=== PATIENT | male | born 1950 | race Caucasian/White ===

== ENCOUNTER → 2017-07-30 | Outpatient (CLI) | payer MEDICARE ==
[~2017-07-30] MED LIST: CITALOPRAM HBR40 MG PO; FARXIGA PO; IOPAMIDOL 370 MG/ML 200 ML INFUS..BTL INJ ONE; LISINOPRIL2.5 MG PO; METFORMIN HCL850 MG PO; METOPROLOL SUCC50 MG PO; SIMVASTATIN80 MG PO; SODIUM CHLORIDE 0.9% 50ML 50 ML ONE; SULINDAC200 MG PO; VIAGRA100 MG PO
[2017-07-30 15:22] LABS: BLOOD UREA NITROGEN 25 mg/dL (7-26); BUN/CREATININE RATIO 27 (6-25); CREATININE, SERUM 0.93 mg/dL (0.72-1.25); EST GLOMERULAR FILTRATION RATE > 60 ML/MIN (60-)
--- NOTE | 2017-07-30 16:59 | Diagnostic Imaging Report ---
PROCEDURE: CT ABDOMEN AND PELVIS WITH CONTRAST TECHNIQUE: The abdomen and pelvis were scanned utilizing a multidetector helical scanner from the diaphragm to the lesser trochanter after the IV administration of 100 cc of Isovue 370 and the oral administration of 900 cc of water. Coronal and sagittal multiplanar reformations were obtained. DLP: 617.5 mGy-cm COMPARISON: None. INDICATIONS: ELEVATED LIPASE, ABDOMINAL PAIN FINDINGS: LOWER THORAX: AICD lead in the right ventricle. Median sternotomy wires and CABG clips on 2nd pressman radiograph. HEPATOBILIARY: No focal hepatic lesions. No biliary ductal dilatation. Multiple calcified gallstones in the neck and fundus. SPLEEN: No splenomegaly. PANCREAS: No focal masses. Pancreatic duct at the upper limits of normal. No peripancreatic stranding, peripancreatic fluid collection, or necrosis. A punctate calcification (coronal image 301) in the inferior body may represent a vascular calcification or parenchymal calcification. ADRENALS: No adrenal nodules. KIDNEYS/URETERS: No hydronephrosis or solid mass lesions. Nonobstructing 3 mm right upper pole calculus. A 0.7 cm hypodensity in the medial posterior interpolar region is too small to characterize but likely a cyst. No ureteral calculi. PELVIC ORGANS/BLADDER: Unremarkable. PERITONEUM / RETROPERITONEUM: No free air or fluid. LYMPH NODES: No lymphadenopathy. VESSELS: Diffuse atherosclerotic disease. Fusiform abdominal aortic aneurysm measures 3.1 cm (series 2 image 46) near the bifurcation. Severe stenosis at the left common iliac artery origin. Focal severe stenosis of the left external iliac artery (coronal image 57). GI TRACT: No distention or wall thickening. The appendix is normal. Few scattered colonic diverticula without evidence of diverticulitis. BONES AND SOFT TISSUES: Scattered degenerative changes, worse at L5-S1. IMPRESSION: 1. No CT evidence of pancreatitis. 2. Cholelithiasis. 3. Right nephrolithiasis. 4. Colonic diverticulosis. 5. Distal abdominal aortic aneurysm measuring 3.1 cm. Dictated by: Man Costa M.D. on 07/30/2017 at 16:59 Electronically approved by: Man Costa M.D. on 07/30/2017 at 16:59
== END ==
LOC: CT 14:26
PROVIDERS: ATTEND Family Medicine
DX: R74.8 Abnormal levels of other serum enzymes (principal)
CPT/HCPCS: 36415; 74177; 82565; 84520; Q9967

== ENCOUNTER → 2017-08-13 | Outpatient (CLI) | payer MEDICARE ==
[~2017-08-13] MED LIST changes: -IOPAMIDOL 370 MG/ML 200 ML INFUS..BTL INJ ONE; -SODIUM CHLORIDE 0.9% 50ML 50 ML ONE; +TRESIBA
--- NOTE | 2017-08-13 11:16 | Diagnostic Imaging Report ---
PROCEDURE:ABDOMINAL ULTRASOUND COMPARISON:[facility], CT, CT ABDOMEN/PELVIS W, 07/30/2017, 16:00. INDICATIONS:ABDOMEN PAIN TECHNIQUE:Moulton scale color Doppler ultrasound FINDINGS: Imaged segments of the inferior vena cava and proximal abdominal aorta are of normal caliber. Distal abdominal aorta diameter 2.5 cm (3.[address] from July 30, 2017). Associated noncalcified atheromatous plaque. Normal pancreatic head and body. Right liver span 14 cm. Echogenic parenchyma with a smooth margin. Portal vein diameter 1 cm; normal flow direction. Multiple calcified gallstones. Wall thickness 0.2 cm; common bile duct diameter 0.6 cm. Right kidney: 10.2 cm span. Normal kidney. Left kidney: 10.5 cm span. Normal kidney. Splenic length of 13 cm. No ascites. CONCLUSION: 1. Cholelithiasis. 2. Hepatic steatosis. 3. Infrarenal aortic ectasia. Dictated by: Justin Cook M.D. on 08/13/2017 at 11:17 Electronically approved by: Justin Cook M.D. on 08/13/2017 at 11:17
== END ==
LOC: US 08:50
PROVIDERS: ATTEND Family Medicine
DX: R10.9 Unspecified abdominal pain (principal)
CPT/HCPCS: 76700

== ENCOUNTER → 2017-08-16 | Day surgery (SDC) | payer MEDICARE ==
[~2017-08-16] MED LIST changes: +FENTANYL CITRATE/PF 100MCG/2 ML INJ ONE; +MIDAZOLAM HCL 2 MG/2 ML VIAL ONE; +PROPOFOL IV EMULSION 10 MG/ML 50 ML VIAL ONE
--- OUTSIDE RECORDS SUMMARY | 2017-08-16 11:57 | XMS REPORT ---
Author Author [facility] Address Unknown Phone Unavailable Care Team Providers Care Development Analyst Name Role Phone YOUSIF GTZ Unavailable Unavailable TIMI GTZ Unavailable Unavailable Problems This patient has no known problems. Allergies, Adverse Reactions, Alerts This patient has no known allergies or adverse reactions. Medications This patient has no known medications. Results Test Description Test Time Test Comments Text Results Atomic Results Result Comments US ABDOMEN COMPLETE [place] [address] Patient Name: ADRIANA KEATING MR #: [id number] : 1950 Age/Sex: 66/M Req # : [id number] Adm Physician: Ordered by: YOUSIF GTZ DO Report #: [id number] Location: Room/Bed: Procedure: [id number] US/US ABDOMEN COMPLETE Exam Date: Exam Time: REPORT STATUS: Signed PROCEDURE: ABDOMINAL ULTRASOUND COMPARISON: [facility], CT, CT ABDOMEN/PELVIS W, 07/30/2017, 16:00. INDICATIONS: ABDOMEN PAIN TECHNIQUE: Moulton scale color Doppler ultrasound FINDINGS: Imaged segments of the inferior vena cava and proximal abdominal aorta are of normal caliber. Distal abdominal aorta diameter 2.5 cm (3.[address] from July 30, 2017). Associated noncalcified atheromatous plaque. Normal pancreatic head and body. Right liver span 14 cm. Echogenic parenchyma with a smooth margin. Portal vein diameter 1 cm; normal flow direction. Multiple calcified gallstones. Wall thickness 0.2 cm; common bile duct diameter 0.6 cm. Right kidney: 10.2 cm span. Normal kidney. Left kidney: 10.5 cm span. Normal kidney. Splenic length of 13 cm. No ascites. CONCLUSION: 1. Cholelithiasis. 2. Hepatic steatosis. 3. Infrarenal aortic ectasia. Dictated by: Carolina Cook M.D. on 08/13/2017 at 11:17 Electronically approved by: Carolina Cook M.D. on 08/13/2017 at 11:17 Dictated By: CAROLINA COOK MD [id number] Transcribed By: JAMES on 08/13/17 1117 COPY TO: YOUSIF GTZ DO CT ABDOMEN/PELVIS W [place] [address] Patient Name: ADRIANA KEATING MR #: [id number] : 1950 Age/Sex: 66/M Req # : [id number] Adm Physician: Ordered by: GTZ ANDREW DO Report #: [id number] Location: CT Room/Bed: Procedure: [id number] CT/CT ABDOMEN/PELVIS W Exam Date: 07/30/17 Exam Time : 1605 REPORT STATUS: Signed PROCEDURE: CT ABDOMEN AND PELVIS WITH CONTRAST TECHNIQUE: The abdomen and pelvis were scanned utilizing a multidetector helical scanner from the diaphragm to the lesser trochanter after the IV administration of 100 cc of Isovue 370 and the oral administration of 900 cc of water. Coronal and sagittal multiplanar reformations were obtained. DLP: 617.5 mGy-cm COMPARISON: None. INDICATIONS: ELEVATED LIPASE, ABDOMINAL PAIN FINDINGS: LOWER THORAX : AICD lead in the right ventricle. Median sternotomy wires and CABG clips on movie machine operator radiograph. HEPATOBILIARY: No focal hepatic lesions. No biliary ductal dilatation. Multiple calcified gallstones in the neck and fundus. SPLEEN: No splenomegaly. PANCREAS: No focal masses. Pancreatic duct at the upper limits of normal. No peripancreatic stranding, peripancreatic fluid collection, or necrosis. A punctate calcification (coronal image 301) in the inferior body may represent a vascular calcification or parenchymal calcification. ADRENALS: No adrenal nodules. KIDNEYS/URETERS: No hydronephrosis or solid mass lesions. Nonobstructing 3 mm right upper pole calculus. A 0.7 cm hypodensity in the medial posterior interpolar region is too small to characterize but likely a cyst. No ureteral calculi. PELVIC ORGANS/BLADDER: Unremarkable. PERITONEUM / RETROPERITONEUM: No free air or fluid. LYMPH NODES: No lymphadenopathy. VESSELS: Diffuse atherosclerotic disease. Fusiform abdominal aortic aneurysm measures 3.1 cm (series 2 image 46) near the bifurcation. Severe stenosis at the left common iliac artery origin. Focal severe stenosis of the left external iliac artery (coronal image 57). GI TRACT: No distention or wall thickening. The appendix is normal. Few scattered colonic diverticula without evidence of diverticulitis. BONES AND SOFT TISSUES: Scattered degenerative changes, worse at L5-S1. IMPRESSION: 1. No CT evidence of pancreatitis. 2. Cholelithiasis. 3. Right nephrolithiasis. 4. Colonic diverticulosis. 5. Distal abdominal aortic aneurysm measuring 3.1 cm. Dictated by : Man Centeno M.D. on 07/30/2017 at 16:59 Electronically approved by: Man Centeno M.D. on 07/30/2017 at 16:59 Dictated By: MAN CENTENO MD 58 Transcribed By: JAMES on 07/30/174 COPY TO: TIMI GTZ DO
[2017-08-16 13:28] LABS: BASOPHILS % 0.5 % (0.0-1.0); EOSINOPHILS # (AUTO) 0.2 (0.0-0.4); EOSINOPHILS % 2.6 % (0.0-6.0); HEMATOCRIT 47.8 % (38.2-49.6); HEMOGLOBIN 16.4 g/dL (14.0-18.0); LYMPHOCYTES # (AUTO) 1.2 (1.0-3.2); LYMPHOCYTES % 15.6 % (18.0-39.1); MEAN CORPUSCULAR HEMOGLOBIN 29.7 pg (28-32); MEAN CORPUSCULAR HGB CONC 34.3 g/dL (31-35); MEAN CORPUSCULAR VOLUME 86.6 fL (81-99); MONOCYTES # (AUTO) 0.6 (0.2-0.8); MONOCYTES % 7.6 % (4.4-11.3); NEUTROPHILS # (AUTO) 5.7 (2.1-6.9); NEUTROPHILS % 73.3 % (38.7-80.0); PLATELET COUNT 166 x10e3/uL (140-360); RED BLOOD COUNT 5.52 x10e6/uL (4.3-5.7); RED CELL DISTRIBUTION WIDTH 13.9 % (11.7-14.4)
== END | disposition home or self-care (01) ==
LOC: OR 11:55
PROVIDERS: ATTEND Internal Medicine Gastroenterology
DX: Z12.11 Encounter for screening for malignant neoplasm of colon (principal); K57.31 Diverticulosis of large intestine without perforation or abscess with bleeding; I25.810 Atherosclerosis of coronary artery bypass graft(s) without angina pectoris; I10 Essential (primary) hypertension; E11.9 Type 2 diabetes mellitus without complications; E66.3 Overweight; I48.91 Unspecified atrial fibrillation; Z68.25 Body mass index [BMI] 25.0-25.9, adult; Z95.810 Presence of automatic (implantable) cardiac defibrillator; Z95.1 Presence of aortocoronary bypass graft; Z87.891 Personal history of nicotine dependence
CPT/HCPCS: 36415; 82948; 85025; 93005; G0121; J2250; 45378

== ENCOUNTER → 2017-09-22 | Day surgery (SDC) | payer MEDICARE ==
[2017-09-21 15:31] LABS: BASOPHILS % 0.5 % (0.0-1.0); EOSINOPHILS # (AUTO) 0.4 (0.0-0.4); EOSINOPHILS % 6.7 % (0.0-6.0); HEMATOCRIT 47.1 % (38.2-49.6); HEMOGLOBIN 15.9 g/dL (14.0-18.0); LYMPHOCYTES # (AUTO) 1.3 (1.0-3.2); LYMPHOCYTES % 20.2 % (18.0-39.1); MEAN CORPUSCULAR HEMOGLOBIN 29.6 pg (28-32); MEAN CORPUSCULAR HGB CONC 33.8 g/dL (31-35); MEAN CORPUSCULAR VOLUME 87.7 fL (81-99); MONOCYTES # (AUTO) 0.7 (0.2-0.8); MONOCYTES % 10.4 % (4.4-11.3); NEUTROPHILS % 61.9 % (38.7-80.0); PLATELET COUNT 142 x10e3/uL (140-360); RED BLOOD COUNT 5.37 x10e6/uL (4.3-5.7); RED CELL DISTRIBUTION WIDTH 14.2 % (11.7-14.4)
[2017-09-21 15:44] LABS: INR 1.02; PROTHROMBIN TIME 12.6 seconds (11.9-14.5)
[2017-09-21 15:45] LABS: PARTIAL THROMBOPLASTIN TIME 36.8 seconds (23.8-35.5)
[2017-09-21 15:51] LABS: ANION GAP 13.6 mmol/L (8-16); BLOOD UREA NITROGEN 29 mg/dL (7-26); BUN/CREATININE RATIO 28 (6-25); CALCIUM 10.1 mg/dL (8.4-10.2); CARBON DIOXIDE 25 mmol/L (22-29); CHLORIDE 105 mmol/L (98-107); CREATININE, SERUM 1.05 mg/dL (0.72-1.25); EST GLOMERULAR FILTRATION RATE > 60 ML/MIN (60-); GLUCOSE 210 mg/dL (74-118); POTASSIUM 4.6 mmol/L (3.5-5.1); SODIUM 139 mmol/L (136-145)
[~2017-09-22] VITALS: Ht 185.4 cm; Wt 88.9 kg
[2017-09-22] VITALS (14 sets, daily range): BP systolic 125–157; BP diastolic 71–104
[~2017-09-22] MED LIST changes: +ADENOSINE 6MG/2ML 1 ML ONE; +ASPIRIN81 MG PO; +DERMA-SMOOT118.28 ML TOP; +GLUCOSAMINE &1 EAC1 PO; +HEPARIN SOD (PORCINE) 1000 UNIT/ML 30ML ONE; +HEPARIN SOD/SOD CHLORIDE 1,000 ML ONE; +HEPARIN SOD/SOD CHLORIDE 2,000 ML ONE; +IOPAMIDOL 300MG/ML 100 ML INFUS..BTL IV ONE; +LIDOCAINE HCL 2% LOCAL 20 ML VIAL ONE; +MAGNESIUM PO; +METOPROLOL TART50 MG PO; +NITROGLYCERIN/D5W 200 MCG/ML 250 ML ONE; -PROPOFOL IV EMULSION 10 MG/ML 50 ML VIAL ONE; +SODIUM CHLORIDE 0.9% 1000ML 1,000 ML ONE; +SODIUM CHLORIDE 0.9% 500ML 500 ML ONE; +TESTOSTERO100 MG/1 M IM; +TESTOSTERONE IM; -TRESIBA; +TRESIBA SQ; +VERAPAMIL HCL 2.5 MG/ML 2 ML VIAL ONE; +VITAMIN D31000 UNIT PO
--- NOTE | 2017-09-23 00:21 | Operative Report ---
DATE OF PROCEDURE: September 22, 2017 PREPROCEDURE DIAGNOSIS: Atherosclerotic peripheral vascular disease with intermittent claudication. POSTPROCEDURE DIAGNOSIS: Atherosclerotic peripheral vascular disease with intermittent claudication. ESTIMATED BLOOD LOSS: 30 mL. SPECIMENS REMOVED: None. PROCEDURES PERFORMED: 1. Conscious sedation 2 hours and 30 minutes. 2. Abdominal aortography with bilateral iliofemoral runoffs. 3. Third order peripheral angiography of the left lower extremity. 4. Orbital atherectomy and percutaneous transluminal angioplasty of the left anterior tibial artery. 5. Percutaneous transluminal angioplasty with a drug-coated balloon to the left superficial femoral artery. 6. Percutaneous transluminal angioplasty and stent placement to bilateral ostial iliac arteries. 7. Closure of bilateral arteriotomy site with Perclose ProGlide devices. PROCEDURE DETAILS: After informed consent was obtained, the patient was brought to the cardiac catheterization laboratory in fasting, nonsedated state. Bilateral groins were prepped and draped in usual sterile fashion. Lidocaine 2% was infiltrated over the right groin for local anesthesia. Using a micropuncture needle, the right common femoral artery is accessed via the modified Seldinger technique, and a 5-Palauan sheath was placed. Next, an Omniflush was advanced over an Advantage wire, and abdominal aortography with bilateral iliofemoral runoffs was performed. This revealed significant bilateral 70% ostial iliac stenoses. This also revealed a mid left superficial femoral artery 70% stenosis with disease also noted in the tibial vessels. Next, I removed the Omniflush and tracked an IM catheter up and over the iliac bifurcation, and third order peripheral angiography was performed of the left lower extremity. This revealed mild to moderate 50% stenosis in the posterior tibial and a severe 90% anterior tibial stenosis. The Advantage wire was then reinserted through this IM catheter with tracking out of the catheter. Next, I removed the 5-Palauan sheath and crossed a 45 cm 6-Palauan sheath up and over into the left SFA. Next, I crossed the anterior tibial lesion with a Whisper wire, which was backloaded into a 0.14 Seeker microcatheter. The microcatheter was tracked out distally and the wire was removed. I then performed a wire exchange for a ViperWire with subsequent removal of the Seeker microcatheter. Next, I performed multiple runs of orbital atherectomy of the anterior tibial vessel with adequate plaque modification. Next, I performed balloon angioplasty of the anterior tibial with a 3-mm balloon. Subsequent angiography revealed excellent angioplasty results. Next, I turned my attention to the superficial femoral artery stenosis. The lesion was predilated with a 6 x 150 VascuTrak balloon with subsequent percutaneous transluminal angioplasty with a [employer] IN.PACT Admiral paclitaxel-coated 6-mm balloon. Angioplasty results here were excellent with brisk antegrade flow. Next, this up and over sheath was pulled back and exchanged over a Wholey wire for a 23 cm 6-Palauan sheath. I then gained access on the left common femoral artery using a micropuncture needle with placement of another 6-Palauan 23-cm sheath. Diagnostic angiography was then performed of bilateral ostial iliac arteries. The left iliac was crossed with the Advantage wire. Next, I performed kissing pre-dilatation balloon inflations with 6 x 40 mm Bard Ultraverse balloons. Next, kissing double-barrel stents were performed at bilateral ostial iliac arteries utilizing 8 x 36 mm Valeo balloon expandable bare-metal stents. Subsequent angiography revealed excellent flow into bilateral iliac vessels with excellent runoff. The sheaths were removed over the wire, and both arteriotomy sites were closed with Perclose ProGlide devices with excellent hemostasis. Patient tolerated the procedure well with no immediate complications, transferred back to his room in stable condition. IMPRESSION AND PLAN: This is a 66-year-old gentleman who presented with symptoms of left lower extremity intermittent claudication, and was found to have severe bilateral iliac, left superficial femoral, and left anterior tibial artery stenoses. He is now status post successful revascularization, and will remain on dual-antiplatelet therapy in addition to optimal medical therapy for his peripheral arterial disease. Job#: [id number]
== END | disposition home or self-care (01) ==
LOC: CATH LAB 09:37
PROVIDERS: ATTEND Internal Medicine Cardiovascular Disease
DX: I70.213 Atherosclerosis of native arteries of extremities with intermittent claudication, bilateral legs (principal); I25.10 Atherosclerotic heart disease of native coronary artery without angina pectoris; I10 Essential (primary) hypertension; E78.2 Mixed hyperlipidemia; I71.4 Abdominal aortic aneurysm, without rupture; E11.59 Type 2 diabetes mellitus with other circulatory complications; Z01.810 Encounter for preprocedural cardiovascular examination; Z01.812 Encounter for preprocedural laboratory examination; Z79.84 Long term (current) use of oral hypoglycemic drugs; Z79.82 Long term (current) use of aspirin; Z95.0 Presence of cardiac pacemaker; Z95.1 Presence of aortocoronary bypass graft; Z87.891 Personal history of nicotine dependence
CPT/HCPCS: 36415; 37221; 37224; 37229; 80048; 85025; 85610; 85730; 93005; C1724; C1725 ×3; C1769 ×3; C1876; C1887; J0153; J1644; J2001; J2250; J7030; J7040; Q9967; 36140; 37223; 75630; 77002; 92924

== ENCOUNTER → 2017-10-25 | Outpatient (CLI) | payer MEDICARE ==
[~2017-10-25] MED LIST changes: -ADENOSINE 6MG/2ML 1 ML ONE; -FENTANYL CITRATE/PF 100MCG/2 ML INJ ONE; -HEPARIN SOD (PORCINE) 1000 UNIT/ML 30ML ONE; -HEPARIN SOD/SOD CHLORIDE 1,000 ML ONE; -HEPARIN SOD/SOD CHLORIDE 2,000 ML ONE; -IOPAMIDOL 300MG/ML 100 ML INFUS..BTL IV ONE; +IOPAMIDOL 370 MG/ML 200 ML INFUS..BTL INJ ONE; -LIDOCAINE HCL 2% LOCAL 20 ML VIAL ONE; -MIDAZOLAM HCL 2 MG/2 ML VIAL ONE; -NITROGLYCERIN/D5W 200 MCG/ML 250 ML ONE; -SODIUM CHLORIDE 0.9% 1000ML 1,000 ML ONE; -SODIUM CHLORIDE 0.9% 500ML 500 ML ONE; +SODIUM CHLORIDE 0.9% 50ML 50 ML ONE; -VERAPAMIL HCL 2.5 MG/ML 2 ML VIAL ONE
[2017-10-25 17:54] LABS: BLOOD UREA NITROGEN 22 mg/dL (7-26); BUN/CREATININE RATIO 22 (6-25); EST GLOMERULAR FILTRATION RATE > 60 ML/MIN (60-)
--- NOTE | 2017-10-25 19:09 | Diagnostic Imaging Report ---
EXAM: CT Chest WITH contrast 10/25/2017 5:16 PM INDICATION: Shortness of breath and elevated the dimer. Pulmonary embolism. COMPARISON: None TECHNIQUE: Chest was scanned utilizing a multidetector helical scanner from the lung apex through the level of the adrenal glands without administration of IV contrast. Coronal and sagittal reformations were obtained. Pulmonary embolism protocol was performed. IV CONTRAST: 100 mL of Omnipaque 300 RADIATION DOSE: Total DLP: 55 4.81 mGy*cm Estimated effective dose: (DLP x 0.014 x size factor) mSv COMPLICATIONS: None FINDINGS: LINES/ TUBES: None. Left-sided cardiac pacemaker. LUNGS AND AIRWAYS: No filling defects within the pulmonary arteries to the resolved segmental level to suggest pulmonary embolism as per clinical query. Bilateral upper lobe emphysematous changes, right greater then left. Mild patchy groundglass densities in the right middle lobe and inferior medial left upper lobe without focal consolidation. 2 mm cuts 5 granuloma in the right middle lobe medially on image 73 series 2. Mild lower lobe central bronchiectasis. PLEURA: The pleural spaces are clear. HEART AND MEDIASTINUM: The thyroid gland is normal. No mediastinal, hilar or axillary lymphadenopathy. The heart is normal in size.. There is no pericardial effusion. Atherosclerotic calcifications of the thoracic aorta without aneurysmal dilatation. Multivessel coronary artery calcifications. Status post post CABG. Atherosclerotic calcifications of the thoracic aorta without aneurysmal dilatation. UPPER ABDOMEN: Limited non-contrast views of the upper abdomen show cholelithiasis.. The adrenal glands are normal. BONES: Median sternotomy wires. Multilevel spondylosis of the thoracic spine. SOFT TISSUES: Unremarkable. IMPRESSION: 1. No acute pulmonary embolism. 2. Bilateral predominantly upper lobe emphysematous changes right greater than left. Mild patchy groundglass density in the right middle lobe is nonspecific, possibly related to mild pneumonitis. No consolidation. 3. Cholelithiasis incidentally noted. Signed by: Dr. Melo Hayes M.D. on 10/25/2017 7:05 PM
== END | disposition home or self-care (01) ==
LOC: CT 17:03
PROVIDERS: ATTEND Family Medicine
DX: R79.89 Other specified abnormal findings of blood chemistry (principal); R06.00 Dyspnea, unspecified; Z95.0 Presence of cardiac pacemaker
CPT/HCPCS: 36415; 71260; 82565; 84520; Q9967

== ENCOUNTER → 2018-05-13 | Outpatient (CLI) | payer MEDICARE ==
[~2018-05-13] MED LIST changes: -IOPAMIDOL 370 MG/ML 200 ML INFUS..BTL INJ ONE; -SODIUM CHLORIDE 0.9% 50ML 50 ML ONE
--- NOTE | 2018-05-13 11:56 | Diagnostic Imaging Report ---
PROCEDURE: CT CHEST WITHOUT CONTRAST CT scan of the chest WITHOUT intravenous contrast, using standard protocol. TECHNIQUE: The chest was scanned utilizing a multidetector helical scanner from the apex to the level of the adrenal glands. No IV or oral contrast was administered. Low dose technique was utilized. Coronal and sagittal multiplanar reformations were obtained. DLP: 542.32 mGy-cm COMPARISON: [facility], CT, CT CHEST W, 10/25/2017, 18:24. INDICATIONS: ABDNORMAL FINDINGS ON DX IMAGING FINDINGS: Lines/tubes: Sternotomy sutures and multiple mediastinal clips. Cardiac device overlies the left chest with a single right ventricular lead. Lungs and Airways: Stable right middle lobe opacities. 2 mm left lower lobe basilar nodule. Again noted are upper lobe emphysematous changes. Pleura: The pleural spaces are clear. Heart and mediastinum: The thyroid gland is normal. No significant mediastinal, hilar or axillary lymphadenopathy is seen. The heart and pericardium are within normal limits. Diffuse coronary artery calcification. Atherosclerotic calcification of the aorta. Soft tissues: Normal. Abdomen: Limited views of the upper abdomen show no abnormality within the visualized liver, spleen, pancreas, or kidneys. The adrenal glands are normal. Stones within the gallbladder. Bones: The visualized bony thorax is within normal limits. IMPRESSION: 1. Stable appearance of the opacities in the right middle lobe 2. Stable emphysematous changes. 3. Left lower lobe basilar nodule requires no further followup. 4. Stones within the gallbladder. Tin Dillon D.O. Dictated by: Tin Dillon D.O. on 05/13/2018 at 12:06 Electronically approved by: Tin Dillon D.O. on 05/13/2018 at 12:06
== END ==
LOC: CT 08:15
PROVIDERS: ATTEND Internal Medicine
DX: R94.8 Abnormal results of function studies of other organs and systems (principal)
CPT/HCPCS: 71250

== ENCOUNTER → 2018-06-29 | Outpatient (CLI) | payer MEDICARE ==
--- NOTE | 2018-06-29 09:51 | Diagnostic Imaging Report ---
EXAM: CT right elbow without contrast. CT right humerus without contrast. INDICATION: Possible foreign body in right elbow. Needle stick. Abnormal x-ray. COMPARISON: None. TECHNIQUE: Right elbow and right humerus were scanned utilizing a multidetector helical scanner without administration of IV contrast. Coronal and sagittal reformations were obtained. Routine protocol was performed. IV CONTRAST: None ORAL CONTRAST: None COMPLICATIONS: None RADIATION DOSE: Total DLP: 1178.79 mGy*cm Estimated effective dose: (DLP x 0.015 x size factor) mSv CTDIvol has been reviewed. It is below the limits set by the Radiation Protocol Committee (RPC). FINDINGS: CT right elbow without contrast: There is no acute fracture, subluxation or avascular necrosis. Mild scattered degenerative changes are seen. No osseous erosion. Mild soft tissue swelling. No radiopaque foreign body is seen about the elbow. CT right humerus without contrast: There is no acute fracture, subluxation or avascular necrosis. Mild scattered degenerative changes are seen. No osseous erosion. Mild soft tissue swelling. No radiopaque foreign body is seen about the humerus. Nonaggressive appearing 1.7 cm curvilinear shaped calcification projecting off the anterior shaft of the humerus likely related to prior soft tissue trauma. Impression: Nonaggressive appearing 1.7 cm curvilinear shaped calcification projecting off the anterior shaft of the humerus likely related to prior soft tissue trauma. No radiopaque foreign body is seen about the right elbow or right humerus. Signed by: Dr. Bassam Carlin M.D. on 06/29/2018 9:48 AM
== END ==
LOC: CT 07:20
PROVIDERS: ATTEND Family Medicine
DX: R93.89 Abnormal findings on diagnostic imaging of other specified body structures (principal); M89.9 Disorder of bone, unspecified

== ENCOUNTER → 2020-05-31 | Outpatient (CLI) | payer MEDICARE | LOC: CT 16:47 | PROVIDERS: ATTEND Family Medicine | DX: R26.81 Unsteadiness on feet (principal) | CPT/HCPCS: 70450 ==